=== PATIENT | female | born 1990 | race Caucasian/White ===

== ENCOUNTER 2023-04-23 14:24 | Outpatient (RCR) | payer OTHER, SELFPAY | END 2023-06-24 08:14 | disposition home or self-care (01) | LOC: OT 14:24 | PROVIDERS: PCP Family Medicine | DX: M25.532 Pain in left wrist (principal); Z98.890 Other specified postprocedural states | CPT/HCPCS: 97035; 97165; 97530 ==

== ENCOUNTER 2023-06-25 08:43 | Outpatient (RCR) | payer OTHER, SELFPAY | END 2023-06-26 15:56 | disposition home or self-care (01) | LOC: OT 08:43 | PROVIDERS: PCP Family Medicine; Visit Provider Orthopaedic Surgery | DX: Z98.890 Other specified postprocedural states (principal); M25.532 Pain in left wrist ==